=== PATIENT | male | born 1940 | race Caucasian/White ===

== ENCOUNTER → 2016-05-23 | Outpatient (CLI) | payer OTHER, MEDICARE ==
[~2016-05-23] MED LIST: AMPYRA10 MG PO; COUMADIN 5 MG TA5 M1 PO; FLUDROCORTISON0.1 MG PO; TIZANIDINE HCL2 M1 PO; TRAMADOL 50 MG50 MG PO
[2016-05-23 11:26] LABS: ABSOLUTE NEUTROPHILS 2.9 thou/uL (1.4-8.2); BASOPHILS 1.1 % (0.0-2.0); EOSINOPHILS 3.6 % (0.0-3.0); HEMATOCRIT 42.3 % (42.0-52.0); HEMOGLOBIN 14.6 gm/dL (14.0-18.0); LYMPHOCYTES 24.9 % (24.0-44.0); MCH 30.5 pg (26.0-34.0); MCHC 34.6 g/dL (28.0-37.0); MCV 88.3 fL (80.0-100.0); MONOCYTES 9.4 % (1.0-8.0); PLATELET COUNT 249 thou/uL (150-400); RBC 4.79 mil/uL (4.50-6.00); RDW 13.6 % (10.5-14.5); WBC 4.8 thou/uL (4.0-11.0)
[2016-05-23 11:28] LABS: MANUAL DIFF NO
[2016-05-23 11:35] LABS: CREATININE 1.1 mg/dL (0.7-1.3); POTASSIUM 3.8 mmol/L (3.5-5.1)
[2016-05-23 11:39] LABS: TOTAL BILIRUBIN 0.6 mg/dL (<0.1-1.0); TOTAL PROTEIN 7.2 g/dL (6.4-8.2)
== END ==
LOC: ULTRA 10:56
PROVIDERS: Surgery
DX: K42.9 Umbilical hernia without obstruction or gangrene (principal); R10.9 Unspecified abdominal pain

== ENCOUNTER → 2016-05-30 | Outpatient (CLI) | payer OTHER, MEDICARE | LOC: NUC 08:42 | DX: R14.0 Abdominal distension (gaseous) (principal); R10.9 Unspecified abdominal pain ==

== ENCOUNTER 2016-06-09 06:08 | Day surgery (SDC) | payer OTHER, MEDICARE ==
[~2016-06-09] VITALS: Ht 175.3 cm; Wt 74.7 kg
--- NOTE | ~2016-06-09 | EKG ---
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: ANDRES : 1940 Requested By: Maximilian Diaz Order Number: [id number] MD: Perfecto Mercado Measurements Intervals [place] Rate: 56 P: 13 NC: 169 QRS: 4 QRSD: 115 T: -6 QT: 425 QTc: 411 Interpretive Statements Sinus bradycardia Ventricular premature complex Right ventricular conduction delay Compared to ECG 12/23/1998 13:20:00 No significant change was found Electronically Signed On 06-09-2016 8:39:12 CDT by Perfecto Mercado [email or web address] <ELECTRONICALLY SIGNED> By: Perfecto Mercado MD, [facility] 06/09/16 0839 3 3 Perfecto Mercado MD, [facility] /EPI
--- NOTE | ~2016-06-09 | O ---
[facility] [place] [address] OPERATIVE REPORT Name: ASAD DOMINGUEZ Room #: DEP [facility]..#: [id number] Admission: 06/09/16 Attend Phys: Maximilian Diaz MD, F Discharge: 06/09/16 Date of : 42 Report #: [id number] THIS REPORT FOR: //name// CC: Eddie Diaz DATE OF SERVICE: 06/09/2016 SURGEON: Maximilian Diaz MD IMAGING ADMINISTRATOR: PITO Carvajal PREOPERATIVE DIAGNOSIS: Incarcerated umbilical hernia. POSTOPERATIVE DIAGNOSIS: Incarcerated umbilical hernia. PROCEDURE: Laparoscopic repair of incarcerated umbilical hernia with Ventralight ST 11.4 cm round mesh. ANESTHESIA: General endotracheal anesthesia and local anesthetic. ESTIMATED BLOOD LOSS: 5 mL. SPECIMEN: Incarcerated umbilical hernia content. COMPLICATIONS: None appreciated. INDICATIONS FOR PROCEDURE: This is a 75-year-old male patient with an umbilical hernia. He has had discomfort of the right supraumbilical area, but denies any overt pain or change in his bowel habits. He has also had some diarrhea occurring approximately 5 minutes postprandially and as a result, he avoids eating fatty and spicy foods. He has had worsening of his pain while doing sit ups and a medicine ball abdominal exercise. He was worked up for potential biliary disease; however, this was negative. On exam, he did have an incarcerated umbilical hernia with tenderness to palpation. He presents now for laparoscopic repair of his incarcerated umbilical hernia. OPERATIVE FINDINGS: Upon entrance into the abdominal cavity, the patient appeared to have incarcerated preperitoneal fat with no bowel involvement. The omentum appeared to have been involved with the defect as well; however, with insufflation, the omentum reduced out of the defect. After taking down the abdominal wall fat, the patient actually had 2 small defects encompassing a 2.5 cm span. Neither of the defects was larger than 1 cm by itself. An 11.4 cm round mesh patch was chosen for the repair. After final placement of the mesh, there was no significant rippling of the mesh. The small-bowel was run from the ileocecal valve to the ligament of Treitz and no adhesions were seen. The [address] [address] OPERATIVE REPORT Name: ASAD DOMINGUEZ Room #: DEP [facility]..#: [id number] Admission: 06/09/16 Attend Phys: Maximilian Diaz MD, F Discharge: 06/09/16 Date of : 42 Report #: [id number] and gallbladder were also appeared normal. There was no evidence for gross colonic pathology. At the conclusion of the operation, the sponge, needle, and instrument counts were correct. There was no evidence for iatrogenic injury. DESCRIPTION OF PROCEDURE IN DETAIL: After the benefits and risks of the procedure were explained to the patient, which include, but are not limited to risks of bleeding, infection, injury to the bowel and underlying organs, risks of DVT, pulmonary embolus, postoperative pain, postoperative expectations, informed consent was obtained. The patient was identified in the preoperative holding area. He was given IV antibiotics as documented in the chart in line with the SCIP protocol. The patient was then taken to the operating room and he was placed in the supine position. SCDs were placed on the patient's bilateral lower extremities and pneumatic compression was initiated. The patient was then given IV sedation and he was intubated without incident. His abdomen was prepped and draped in the standard sterile fashion. A time-out was performed to identify the correct patient and procedure. Local anesthetic was infiltrated into the skin and subcutaneous tissue in the left subcostal area where a small skin luis alberto was made and a 5-mm Visiport was placed intraperitoneally with a 0-degree angled laparoscope. Pneumoperitoneum was then achieved with insufflation of carbon dioxide to 15 mmHg. A 30-degree angled laparoscope was then inserted. A left lateral 12-mm and left lower quadrant 5-mm port were each placed under direct visualization after local anesthetic was infiltrated into the skin and subcutaneous tissue and an appropriately sized incisions were made. Operative findings were as noted above. The incarcerated abdominal wall fat was dissected off of the abdominal wall with the ultrasonic dissector. Dissection continued to reduce the incarcerated hernia content from the 2 defects that were identified at the umbilicus. Dissection continued inferiorly to an area that was approximately 8-10 cm inferior to the defects. The incarcerated tissue was then transected at this level and placed in the right upper quadrant of the abdomen for later removal. The defects were then measured and the appropriate sized mesh patch was chosen for the repair. It was opened on the back table and rolled, then advanced into the abdominal cavity through the 12-mm port. The eyelet of the inflation catheter was then grasped through a small fascial bridge transabdominally and delivered externally. The eyelet was then excised. The balloon was inflated with the inflation apparatus. The catheter was then clamped at the skin level to hold air within the balloon, which served as a scaffolding for the mesh. The mesh was then tacked into place with the SecureStrap absorbable fixation device. The intra-abdominal pressure was set at 8 mmHg. Tacks were placed initially at the 12, 3, 6, and 9 o'clock positions, then filled in with 1 cm or less distance between each tack. The periphery of the mesh was tacked down. The balloon was then removed from the abdominal cavity through the 12-mm port under direct visualization. The fixation device was then used to tack the internal portion [facility] [address] [place] [address] OPERATIVE REPORT Name: ASAD DOMINGUEZ Room #: DEP [facility] M.R.#: [id number] Admission: 06/09/16 Attend Phys: Maximilian Diaz MD, F Discharge: 06/09/16 Date of : 42 Report #: [id number] of the mesh as well around the defect. The incarcerated tissue was removed through the 12-mm port site under direct visualization. The Miguel-Neetu laparoscopic fascial closure device with an 0 PDS suture was then used to approximate the 12-mm port site fascial opening. The suture was tagged and the port was replaced. The abdominal cavity was then explored with findings as noted above. The small-bowel was run from the ileocecal valve to the ligament of Treitz. The colon was also visualized as was the liver and gallbladder. After ensuring final hemostasis within the abdominal cavity, the 12-mm port was removed and the suture was tied under direct visualization to ensure no incorporation of intraabdominal content. The abdominal cavity was then desufflated through the remaining ports. The ports were removed. The interrupted subcuticular 4-0 Monocryl sutures and Dermabond were used to close the skin incisions. Dermabond was also placed at the puncture site near the umbilicus. After this dried, a tonsil sponge with Tegaderm was placed to help prevent seroma formation. The patient tolerated the procedure well. He was awakened, extubated, and taken to recovery room in stable condition with no apparent intraoperative complications. <ELECTRONICALLY SIGNED> By: Maximilian Diaz MD, FACS 06/13/16 1430 [id number] Maximilian Diaz MD, FACS /nt
--- NOTE | ~2016-06-09 | S ---
[place] [address] SURGICAL PATH RPT PROCEDURE Name: ERIC DOMINGUEZ Room #: DEP [facility] [place] M..#: [id number] Admission: 06/09/16 Date of : 42 Discharge: 06/09/16 Report #: [id number] Path Case #: [id number] PATHOLOGY REPORT COLLECTION DATE: 06/09/2016 RECEIVED DATE: 06/09/2016 SUBMITTING PHYS: Dr. Maximilian Diaz OTHER PHYS: Dr. Eddie Collins SPECIMEN(S) RECEIVED: A.Incarcerated umbilical hernia contents * * * * * * * * * * * * FINAL DIAGNOSIS: Fibroadipose tissue, incarcerated umbilical hernia contents, repair: - Congested tissue with reactive changes, compatible with hernia sac. PATHOLOGIST: Karla Albert M.D. REPORT ELECTRONICALLY SIGNED BY: Karla Albert M.D. DATE/TIME: 06/13/2016 16:42 * * * * * * * * * * * * GROSS PATHOLOGY: The specimen is received in formalin, labeled "Eric Dominguez incarcerated umbilical hernia contents". Received is a poorly circumscribed, non-encapsulated segment of bright, yellow, lobulated adipose tissue measuring 6.5 x 5.2 x 0.3 cm. Sectioning reveals a bright yellow, lobulated adipose cut surface with no solid masses or nodules identified. [employer] sections are submitted in cassette A1. (SNA; 06/10/2016) CLINICAL HISTORY: Incarcerated umbilical hernia INITIAL CPT CODE(S): A; 51975 Professional services performed by [facility] at [address] [place] [address] Technical services performed by [facility] at [address] [place] [id number] [place] [address] SURGICAL PATH RPT PROCEDURE Name: ERIC DOMINGUEZ Room #: DEP [facility] [place] Juan Pablo#: [id number] Admission: 06/09/16 Date of : 42 Discharge: 06/09/16 Report #: [id number] Path Case #: [id number] [address] PHONE: [phone] DIRECTOR: Francisco Javier Herrera M.D. * * * END OF REPORT * * *
[~2016-06-09 06:08] MED LIST changes: +ALEVE220 MG PO; +B12INJ IM; +MULTI VITAMIN1 EACH PO; +PROSCAR 5MG TABL5 MG PO; +SERTRALINE HCL50 MG PO
[2016-06-09 08:15] VITALS: BP 130/83
[2016-06-09 08:41] LABS: PROTIME 10.7 Seconds (9.3-11.4)
[2016-06-09] MEDS ORDERED: SENNA-S TABLET1 EACH PO (12:33)
[2016-06-09] MEDS ORDERED: HYDROCODONE-AP1 EAC6 PO (12:33)
[2016-06-09] MEDS ORDERED: NEURONTIN 300300 M1 PO (12:33)
[2016-06-09 13:10] VITALS: BP 130/83
== END 2016-06-09 14:45 | disposition home or self-care (01) ==
LOC: OR 06:08 → TBA 06:08 → OR 10:18
PROVIDERS: Surgery
DX: K42.0 Umbilical hernia with obstruction, without gangrene (principal); G47.33 Obstructive sleep apnea (adult) (pediatric); Z86.711 Personal history of pulmonary embolism; Z79.01 Long term (current) use of anticoagulants
CPT/HCPCS: 50010; 50101; 50249; 50386; 50555; 50558; 50962; 50980; 50984; 52265; 53307; 54022; 54118; 56462; 56525; 56526; 57092; 62110; 62900; 70005

== ENCOUNTER → 2016-06-24 | Outpatient (CLI) | payer OTHER, MEDICARE ==
[~2016-06-24] MED LIST changes: +HYDROCODONE-AP1 EAC6 PO; +NEURONTIN 300300 M1 PO; +SENNA-S TABLET1 EACH PO
== END ==
LOC: RAD 13:09
DX: M79.89 Other specified soft tissue disorders (principal)

== ENCOUNTER → 2016-11-07 | Outpatient (CLI) | payer OTHER, MEDICARE | LOC: RAD 12:22 | DX: M25.531 Pain in right wrist (principal); M79.89 Other specified soft tissue disorders ==

== ENCOUNTER → 2017-05-26 | Outpatient (CLI) | payer OTHER, MEDICARE ==
[2017-05-26 10:03] LABS: CREATININE 1.3 mg/dL (0.7-1.3)
== END ==
LOC: CAT 09:28
PROVIDERS: Surgery
DX: K57.30 Diverticulosis of large intestine without perforation or abscess without bleeding (principal); M41.35 Thoracogenic scoliosis, thoracolumbar region; J98.4 Other disorders of lung; Z98.890 Other specified postprocedural states; Z87.19 Personal history of other diseases of the digestive system

== ENCOUNTER → 2017-07-27 | Outpatient (CLI) | payer OTHER, MEDICARE | LOC: MRI 06:20 | DX: M47.24 Other spondylosis with radiculopathy, thoracic region (principal); M41.85 Other forms of scoliosis, thoracolumbar region; G11.4 Hereditary spastic paraplegia ==